=== PATIENT | female | born 1980 | race African-American/Black ===

== ENCOUNTER 2016-07-21 16:14 | Emergency (ER) | payer OTHER ==
[~2016-07-21] VITALS: Ht 147.3 cm; Wt 59.9 kg
[2016-07-21] MEDS ORDERED: ATEN25TA21 PO (16:34)
[2016-07-21] MEDS ORDERED: PRINIVIL10 MG OR (16:34)
== END 2016-07-21 18:20 | disposition home or self-care (01) ==
LOC: ED 16:14
DX: S00.86XA Insect bite (nonvenomous) of other part of head, initial encounter (principal); S10.96XA Insect bite of unspecified part of neck, initial encounter; S20.362A Insect bite (nonvenomous) of left front wall of thorax, initial encounter; S20.361A Insect bite (nonvenomous) of right front wall of thorax, initial encounter; S30.861A Insect bite (nonvenomous) of abdominal wall, initial encounter; S20.462A Insect bite (nonvenomous) of left back wall of thorax, initial encounter; S20.461A Insect bite (nonvenomous) of right back wall of thorax, initial encounter; S40.862A Insect bite (nonvenomous) of left upper arm, initial encounter; S40.861A Insect bite (nonvenomous) of right upper arm, initial encounter; W57.XXXA Bitten or stung by nonvenomous insect and other nonvenomous arthropods, initial encounter
CPT/HCPCS: 87077; 87081; 87185; 87186; 87880; 99282